=== PATIENT | male | born 1985 | race Caucasian/White ===

== ENCOUNTER 2018-05-28 19:19 | Emergency (ER) | payer OTHER ==
[2018-05-28 19:28] VITALS: BP 124/75; PULSE 108; RESP 18; TEMP 98.4
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
--- NOTE | 2018-05-28 19:48 | XR ---
EXAMINATION TYPE: XR hand complete RT DATE OF EXAM: 05/28/2018 COMPARISON: NONE HISTORY: Right hand pain TECHNIQUE: 3 views FINDINGS: Metacarpals appear intact. I see no fracture nor dislocation. There are no erosions. Joint spaces are normal. IMPRESSION: Negative right hand exam.
== END 2018-05-28 20:03 | disposition home or self-care (01) ==
LOC: EC 19:19
DX: S63.91XA Sprain of unspecified part of right wrist and hand, initial encounter (principal); F17.200 Nicotine dependence, unspecified, uncomplicated; Z88.5 Allergy status to narcotic agent; W23.0XXA Caught, crushed, jammed, or pinched between moving objects, initial encounter
CPT/HCPCS: 99283